=== PATIENT | female | born 2000 | race Hispanic/Latino ===

== ENCOUNTER 2019-01-21 14:56 | Emergency (ER) | payer MEDICAID ==
[~2019-01-21] VITALS: Ht 162.6 cm; Wt 85.6 kg
== END 2019-01-21 15:46 | disposition home or self-care (01) ==
LOC: ED 14:56
DX: Z48.817 Encounter for surgical aftercare following surgery on the skin and subcutaneous tissue (principal); Z88.5 Allergy status to narcotic agent
CPT/HCPCS: 99282